=== PATIENT | male | born 1960 | race Caucasian/White ===

== ENCOUNTER → 2017-01-12 | Outpatient (CLI) | payer BC ==
[~2017-01-12] MED LIST: ASPI-535 PO
--- NOTE | 2017-01-12 09:58 | RADRPT ---
PROCEDURE: XR Right hip and pelvis. CLINICAL INDICATION: Right hip pain. Pelvic pain. TECHNIQUE: Two views. Frontal pelvis and lateral right hip. COMPARISON: 10/13/2012. FINDINGS: There is no fracture or dislocation. The soft tissues are normal. There are degenerative changes of the right hip with joint space narrowing and osteophytes. There is a left hip total arthroplasty which appears satisfactory. There is no lytic or blastic lesion. The upper pelvis is not completely included on the image. IMPRESSION: 1. Moderate degenerative changes of the right hip. 2. Satisfactory postoperative appearance of the left hip. RPTAT: QQ .Graham Rivera MD, MD Date Time Electronically viewed and signed by .Graham Rivera MD, MD on 01/12/2017 09:57 .R/
--- NOTE | 2017-01-13 02:02 | HKNOTE ---
DATE OF SERVICE: 01/12/2017 NEW CONDITION MAIN COMPLAINT: Pain in the right hip. HISTORY OF MAIN COMPLAINT: The patient is a 56-year-old male who underwent a left hip replacement w hich was performed by me in 2008. The left hip socket was exchanged in 2012 (ASR socket). He has had no further problems with his lef t hip. He now complains of pain in his right groin which has been coming on gradually over the past 3 months without any history of injury. PRESENT COMPLAINTS: The pain in his right hip is localized to the groin without radiation. pain oc curs after exercising and also when he tries to lift his right leg to put on his trousers, and also in getting in and out of his car. His pain is absent at rest. He is not taking any medications for the pain. He is not using a walki ng aid. He is not limping. His leg lengths feel equal. He can clip his toenails and tie his shoel aces. 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 PAST ORTHOPEDIC HISTORY: Previous orthopedic operations as above. PRIOR CORTISONE INTAKE: One injection for his left thumb. ALCOHOL INTAKE: Minimal. OTHER JOINT PROBLEMS: None. BLOOD TESTS FOR ARTHRITIS: None. PRIOR INJURIES TO HIPS OR KNEES: None. 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 PAST MEDICAL HISTORY: Entirely negative. PAST SURGICAL HISTORY: 1. Left hip replacement in 2008. 2. Left hip socket revision in 2012. 3. Right knee arthroscopy (Dr. Michaels). 4. Right biceps tendon reattachment 2016. DRUG ALLERGIES: NONE. MEDICATIONS: None. FAMILY HISTORY: Noncontributory. SYSTEMS REVIEW: Entirely negative. HABITS: Patient does not smoke nor has he ever smoked. Alcohol intake minimal. 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 PHYSICAL EXAMINATION GENERAL: A remarkably youthful, well built, 56-year-old male. VITAL SIGNS: Height 5 feet 6 inches, weight 188 pounds. Blood pressure 140/65, temperature 98.8. The patient's gait is normal. Neurological examination of the lower extremities is normal. LEFT HIP: A full range of motion without pain. No tenderness anywhere around the hip. RIGHT HIP: A full range of motion with pain in the right groin at all limits of motion. LEFT KNEE: The left knee shows normal alignment. Active and passive extension is 0 degrees. Active and passive flexion is 135 degrees. The medial and lateral collateral ligaments and cruciate ligamen ts are intact. Clare test is negative. There is no effusion, tenderness, scarring, crepitus, or cy sts. The patella tracks normally. There is no tenderness on the articular surface of the patella or in the patellar groove. The Q angle is normal. RIGHT KNEE: Healed portals of previous arthroscopic surgery. The right knee shows normal alignment . Active and passive extension is 0 degrees. Active and passive flexion is 135 degrees. The medial a nd lateral collateral ligaments and cruciate ligaments are intact. Clare test is negative. There i s no effusion, tenderness, scarring, crepitus, or cysts. The patella tracks normally. There is no te nderness on the articular surface of the patella or in the patellar groove. The Q angle is normal. IMAGING: Plain x-rays of the pelvis and hips obtained today at the [facility] we re reviewed (3 views). The left hip shows hip replacement implant components which have been well p laced and aligned, well attached to the bone. No evidence of any underlying problem. Imaging of the right hip show approximately 75% loss of the joint space throughout. DIAGNOSES: 1. Status post left total hip replacement and socket revision. 2. Moderate minimally symptomatic degenerative osteoarthritis of the right hip. MANAGEMENT: The patient is advised that he most certainly can expect the arthritis in his right hip to progress with time. There is not very much he can do about preventing the progression other anneliese n staying active as he has been. The rate of further deterioration cannot be predicted, but what can be predicted is the certainty of a future hip replacement (in my estimation, possibly 2 to 3 years). He was advised to take [id number] anti-inflammatory medications (Advil) until his pain is no l onger controlled with OTC meds. At that time, we will return and I will inject cortisone into the right hip which should give him mo re prolonged relief. He should remain as active as he can be. When his arthritis has progressed sufficiently to impact on his daily life and not responding to ant inflammatory medications, he will need to have a right hip replacement. Recent developments in hip replacement (anterior hip replacement) were discussed with him. He will be seen again as necessary. Dictated By: MARGARITO LIPSCOMB/JERICA Conf#: [id number] DID#: [id number]
--- NOTE | 2017-01-13 02:02 | HKNOTE ---
DATE OF SERVICE: 01/12/2017 NEW CONDITION MAIN COMPLAINT: Pain in the right hip. HISTORY OF MAIN COMPLAINT: The patient is a 56-year-old male who underwent a left hip replacement w hich was performed by me in 2008. The left hip socket was exchanged in 2012 (ASR socket). He has had no further problems with his lef t hip. He now complains of pain in his right groin which has been coming on gradually over the past 3 months without any history of injury. PRESENT COMPLAINTS: The pain in his right hip is localized to the groin without radiation. pain oc curs after exercising and also when he tries to lift his right leg to put on his trousers, and also in getting in and out of his car. His pain is absent at rest. He is not taking any medications for the pain. He is not using a walki ng aid. He is not limping. His leg lengths feel equal. He can clip his toenails and tie his shoel aces. 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 PAST ORTHOPEDIC HISTORY: Previous orthopedic operations as above. PRIOR CORTISONE INTAKE: One injection for his left thumb. ALCOHOL INTAKE: Minimal. OTHER JOINT PROBLEMS: None. BLOOD TESTS FOR ARTHRITIS: None. PRIOR INJURIES TO HIPS OR KNEES: None. 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 PAST MEDICAL HISTORY: Entirely negative. PAST SURGICAL HISTORY: 1. Left hip replacement in 2008. 2. Left hip socket revision in 2012. 3. Right knee arthroscopy (Dr. Michaels). 4. Right biceps tendon reattachment 2016. DRUG ALLERGIES: NONE. MEDICATIONS: None. FAMILY HISTORY: Noncontributory. SYSTEMS REVIEW: Entirely negative. HABITS: Patient does not smoke nor has he ever smoked. Alcohol intake minimal. 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 Francesco Rojas, [address] [facility] [address], [place], [place] [address]. PHYSICAL EXAMINATION GENERAL: A remarkably youthful, well built, 56-year-old male. VITAL SIGNS: Height 5 feet 6 inches, weight 188 pounds. Blood pressure 140/65, temperature 98.8. The patient's gait is normal. Neurological examination of the lower extremities is normal. LEFT HIP: A full range of motion without pain. No tenderness anywhere around the hip. RIGHT HIP: A full range of motion with pain in the right groin at all limits of motion. LEFT KNEE: The left knee shows normal alignment. Active and passive extension is 0 degrees. Active and passive flexion is 135 degrees. The medial and lateral collateral ligaments and cruciate ligamen ts are intact. Clare test is negative. There is no effusion, tenderness, scarring, crepitus, or cy sts. The patella tracks normally. There is no tenderness on the articular surface of the patella or in the patellar groove. The Q angle is normal. RIGHT KNEE: Healed portals of previous arthroscopic surgery. The right knee shows normal alignment . Active and passive extension is 0 degrees. Active and passive flexion is 135 degrees. The medial a nd lateral collateral ligaments and cruciate ligaments are intact. Clare test is negative. There i s no effusion, tenderness, scarring, crepitus, or cysts. The patella tracks normally. There is no te nderness on the articular surface of the patella or in the patellar groove. The Q angle is normal. IMAGING: Plain x-rays of the pelvis and hips obtained today at the [facility] we re reviewed (3 views). The left hip shows hip replacement implant components which have been well p laced and aligned, well attached to the bone. No evidence of any underlying problem. Imaging of the right hip show approximately 75% loss of the joint space throughout. DIAGNOSES: 1. Status post left total hip replacement and socket revision. 2. Moderate minimally symptomatic degenerative osteoarthritis of the right hip. MANAGEMENT: The patient is advised that he most certainly can expect the arthritis in his right hip to progress with time. There is not very much he can do about preventing the progression other anneliese n staying active as he has been. The rate of further deterioration cannot be predicted, but what can be predicted is the certainty of a future hip replacement (in my estimation, possibly 2 to 3 years). He was advised to take [id number] anti-inflammatory medications (Advil) until his pain is no l onger controlled with OTC meds. At that time, we will return and I will inject cortisone into the right hip which should give him mo re prolonged relief. He should remain as active as he can be. When his arthritis has progressed sufficiently to impact on his daily life and not responding to ant inflammatory medications, he will need to have a right hip replacement. Recent developments in hip replacement (anterior hip replacement) were discussed with him. He will be seen again as necessary. Dictated By: MARGARITO LIPSCOMB/JERICA Conf#: [id number] DID#: [id number]
--- NOTE | 2017-01-13 02:02 | HKNOTE ---
DATE OF SERVICE: 01/12/2017 NEW CONDITION MAIN COMPLAINT: Pain in the right hip. HISTORY OF MAIN COMPLAINT: The patient is a 56-year-old male who underwent a left hip replacement w hich was performed by me in 2008. The left hip socket was exchanged in 2012 (ASR socket). He has had no further problems with his lef t hip. He now complains of pain in his right groin which has been coming on gradually over the past 3 months without any history of injury. PRESENT COMPLAINTS: The pain in his right hip is localized to the groin without radiation. pain oc curs after exercising and also when he tries to lift his right leg to put on his trousers, and also in getting in and out of his car. His pain is absent at rest. He is not taking any medications for the pain. He is not using a walki ng aid. He is not limping. His leg lengths feel equal. He can clip his toenails and tie his shoel aces. 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 PAST ORTHOPEDIC HISTORY: Previous orthopedic operations as above. PRIOR CORTISONE INTAKE: One injection for his left thumb. ALCOHOL INTAKE: Minimal. OTHER JOINT PROBLEMS: None. BLOOD TESTS FOR ARTHRITIS: None. PRIOR INJURIES TO HIPS OR KNEES: None. 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 PAST MEDICAL HISTORY: Entirely negative. PAST SURGICAL HISTORY: 1. Left hip replacement in 2008. 2. Left hip socket revision in 2012. 3. Right knee arthroscopy (Dr. Michaels). 4. Right biceps tendon reattachment 2016. DRUG ALLERGIES: NONE. MEDICATIONS: None. FAMILY HISTORY: Noncontributory. SYSTEMS REVIEW: Entirely negative. HABITS: Patient does not smoke nor has he ever smoked. Alcohol intake minimal. 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 Francesco Rojas, [address] [facility] [place] [address], [place], [place] [address]. PHYSICAL EXAMINATION GENERAL: A remarkably youthful, well built, 56-year-old male. VITAL SIGNS: Height 5 feet 6 inches, weight 188 pounds. Blood pressure 140/65, temperature 98.8. The patient's gait is normal. Neurological examination of the lower extremities is normal. LEFT HIP: A full range of motion without pain. No tenderness anywhere around the hip. RIGHT HIP: A full range of motion with pain in the right groin at all limits of motion. LEFT KNEE: The left knee shows normal alignment. Active and passive extension is 0 degrees. Active and passive flexion is 135 degrees. The medial and lateral collateral ligaments and cruciate ligamen ts are intact. Clare test is negative. There is no effusion, tenderness, scarring, crepitus, or cy sts. The patella tracks normally. There is no tenderness on the articular surface of the patella or in the patellar groove. The Q angle is normal. RIGHT KNEE: Healed portals of previous arthroscopic surgery. The right knee shows normal alignment . Active and passive extension is 0 degrees. Active and passive flexion is 135 degrees. The medial a nd lateral collateral ligaments and cruciate ligaments are intact. Clare test is negative. There i s no effusion, tenderness, scarring, crepitus, or cysts. The patella tracks normally. There is no te nderness on the articular surface of the patella or in the patellar groove. The Q angle is normal. IMAGING: Plain x-rays of the pelvis and hips obtained today at the [facility] we re reviewed (3 views). The left hip shows hip replacement implant components which have been well p laced and aligned, well attached to the bone. No evidence of any underlying problem. Imaging of the right hip show approximately 75% loss of the joint space throughout. DIAGNOSES: 1. Status post left total hip replacement and socket revision. 2. Moderate minimally symptomatic degenerative osteoarthritis of the right hip. MANAGEMENT: The patient is advised that he most certainly can expect the arthritis in his right hip to progress with time. There is not very much he can do about preventing the progression other anneliese n staying active as he has been. The rate of further deterioration cannot be predicted, but what can be predicted is the certainty of a future hip replacement (in my estimation, possibly 2 to 3 years). He was advised to take [id number] anti-inflammatory medications (Advil) until his pain is no l onger controlled with OTC meds. At that time, we will return and I will inject cortisone into the right hip which should give him mo re prolonged relief. He should remain as active as he can be. When his arthritis has progressed sufficiently to impact on his daily life and not responding to ant inflammatory medications, he will need to have a right hip replacement. Recent developments in hip replacement (anterior hip replacement) were discussed with him. He will be seen again as necessary. Dictated By: MARGARITO LIPSCOMB/JERICA Conf#: [id number] DID#: [id number]
== END | disposition home or self-care (01) ==
LOC: HKI 09:33
DX: M16.11 Unilateral primary osteoarthritis, right hip (principal); Z96.642 Presence of left artificial hip joint
CPT/HCPCS: 73502; G0463